=== PATIENT | female | born 1955 | race Hispanic/Latino ===

== ENCOUNTER 2019-02-07 06:08 | Observation (INO) | payer OTHER ==
[2019-02-07] MEDS ORDERED: NACL 0.9% 500 ML 500 ML ONE (06:15)
[2019-02-07] MEDS ORDERED: ECOTRIN PO ONE (06:26)
[2019-02-07 06:43] LABS: Basophils # (Auto) 0.1 K/mm3 (0.0-0.1); Basophils % (Auto) 0.7 % (0.0-1.8); Eosinophils # (Auto) 0.2 K/mm3 (0.0-0.4); Eosinophils % (Auto) 1.5 % (0.0-4.3); Hematocrit 38.4 % (30.3-42.9); Hemoglobin 12.9 gm/dl (10.1-14.3); Lymphocytes # (Auto) 2.7 K/mm3 (1.2-5.4); Lymphocytes % (Auto) 23.6 % (13.4-35.0); Mean Corpuscular HGB Conc 34 % (30-34); Mean Corpuscular Volume 91 fl (79-97); Monocytes # (Auto) 0.8 K/mm3 (0.0-0.8); Monocytes % (Auto) 6.8 % (0.0-7.3); Platelet Count 257 K/mm3 (140-440); Red Cell Distribution Width 14.7 % (13.2-15.2)
[2019-02-07 06:56] LABS: BUN/Creatinine Ratio 27; Blood Urea Nitrogen 19 mg/dL (7-17); Calcium 9.2 mg/dL (8.4-10.2); Hemolysis Index 69
[2019-02-07 07:00] LABS: INR 1.1 (0.87-1.13)
[2019-02-07 07:01] LABS: Partial Thromboplastin Time 27.9 Sec. (24.2-36.6)
[2019-02-07] MEDS: NACL 0.9% 500 ML 500 ML IV SCH ×2 (07:13→09:52)
[2019-02-07] MEDS ORDERED: PLAVIX PO SCH (08:30)
[2019-02-07] MEDS ORDERED: PLAVIX ONE ×2 (08:32→10:38)
[2019-02-07] MEDS ORDERED: HEPARIN/NS 5000 UNIT/500ML(CATH LAB) 1,000 ML IR ONE (09:20)
[2019-02-07] MEDS ORDERED: CALAN ONE (09:20)
[2019-02-07] MEDS ORDERED: XYLOCAINE 2% INFILTRATI ONE (09:20)
[2019-02-07] MEDS ORDERED: NITROGLYCERIN SYRINGE 3 ML ONE (09:21)
[2019-02-07] MEDS ORDERED: SUBLIMAZE ONE (09:35)
[2019-02-07] MEDS ORDERED: VERSED ONE (09:35)
[2019-02-07] MEDS: HEPARIN 10,000 UNITS/10 ML ONE ×3 (09:52→10:30)
[2019-02-07] MEDS ORDERED: ALUM-MAG HYDROX-SIMETH 200-200-20MG/5ML ONE (10:38)
--- NOTE | 2019-02-07 12:36 | Cardiac Catherization Report ---
REFERRING PHYSICIAN: Dr. Scottie Zamorano. INDICATION FOR PROCEDURE: The patient is a pleasant 63-year-old female having recurrent chest pain, abnormal nuclear stress test, on multiple antianginals, referred for left heart catheterization. She has known peripheral vascular disease as well. Risks, benefits, alternatives discussed at length prior to obtaining informed consent. PROCEDURE IN DETAIL: The patient was brought to the labelling machine operator in a postabsorptive state, was prepped and draped in sterile fashion. Cedric's test in right hand was normal. A 2 mL of 2% lidocaine used to anesthetize the right wrist. A standard 6-[place]rainian hydrophilic sheath used to cannulate the right radial artery via modified Seldinger technique. All exchanges performed to exchange a J-tip guidewire. A JL3.5 catheter used to engage the left main. No dampening or ventricularization. Cineangiography performed in multiple projections. JR4 catheter used to cross the aortic valve on fluoroscopic guidance. Left ventriculography in 30 HOOKS and 30 VENEZUELAN projections via hand injections, catheter flushed. Manual pullback performed with continuous pressure monitoring. Catheter used to engage the right coronary. No dampening or ventricularization. Cineangiography performed in all projections. DATA: Aortic pressure is 120/80. LV pressure is 120, LVEDP of 12 mmHg. She remained in normal sinus rhythm throughout the procedure. Left ventriculography reveals normal systolic performance. Estimated ejection fraction of 55-60%. No evidence of aortic stenosis. CORONARY ANATOMY: This is a codominant system. Left main is a short vessel, bifurcates into left anterior descending and left circumflex. Her overall vasculature is quite small for her size, likely due to long-term tobacco abuse. Left circumflex with an ulcerated 90% stenosis in the mid segment. This is the culprit lesion. There are extensive left to right collaterals identified. LAD is a moderate sized vessel, courses the anterior interventricular groove, wraps around the apex, scattered luminal irregularities in the small LAD, but no obstructive lesions identified in the LAD or diagonal vessels. The right coronary is very small and chronically occluded in the mid segment. Again, left to right collaterals were identified. Given unstable angina, abnormal stress test with lateral ischemia, chest pain, multiple antianginals, decided to proceed with PCI. Heparin given. EBU 3.0 guide was used to engage left main without difficulty, used a [place] wire to cross the lesion, used a 2.5 x 18 [place] drug-eluting stent deployed at 12 JANESSA for 30 seconds, excellent angiographic result. Intravascular ultrasound was performed, which reveals a well-opposed, well-expanded stent. No complications. Final angiogram reveals excellent result. I directly supervised the administration of moderate sedation from 10:10 a.m.-10:45 a.m. with fentanyl and Versed. CONCLUSIONS: 1. Severe 2-vessel disease. a. Ulcerated 90% mid left circumflex stenosis, which is the culprit lesion consistent with her symptoms and abnormal stress test. b. Successful IVUS guided PCI with placement of drug-eluting stent ([place] 2.5 x 18 mm) with excellent final angiographic and ultrasonographic results. c. Chronic total occlusion of a very small mid right coronary with left to right collaterals. Medical management. 3. Short left main and LAD without significant disease. 4. Preserved left ventricular systolic performance, estimated ejection fraction of 55-60%. 5. No evidence of aortic stenosis. Aspirin, Plavix, statin. I discussed smoking cessation at length for 5 minutes, including techniques; aggressive primary and secondary prevention measures; standard radial care. Results of procedure explained to the patient at length. All questions were addressed. Anticipate discharge tomorrow. JOB# [id number] SBM/NTS
[2019-02-08 06:13] LABS: Basophils % (Auto) 0.4 % (0.0-1.8); Eosinophils # (Auto) 0.1 K/mm3 (0.0-0.4); Eosinophils % (Auto) 1.2 % (0.0-4.3); Hemoglobin 13.1 gm/dl (10.1-14.3); Lymphocytes # (Auto) 1.8 K/mm3 (1.2-5.4); Lymphocytes % (Auto) 19.6 % (13.4-35.0); Mean Corpuscular HGB Conc 34 % (30-34); Mean Corpuscular Volume 90 fl (79-97); Monocytes # (Auto) 0.7 K/mm3 (0.0-0.8); Monocytes % (Auto) 7.5 % (0.0-7.3); Platelet Count 218 K/mm3 (140-440); Red Cell Distribution Width 14.7 % (13.2-15.2)
[2019-02-08 06:26] LABS: Creatine Kinase MB 22.8 ng/mL (0.0-4.0)
[2019-02-08 06:27] LABS: BUN/Creatinine Ratio 18; Blood Urea Nitrogen 9 mg/dL (7-17); Calcium 8.9 mg/dL (8.4-10.2); Hemolysis Index 0
[2019-02-08 07:17] LABS: Chol/HDL Ratio 3.76 %; HDL Cholesterol 30 mg/dL (40-59); LDL Cholesterol,Direct 73 mg/dL (50-130)
--- NOTE | 2019-02-08 08:10 | XRay Report ---
CHEST 1 VIEW 02/08/2019 7:57 AM INDICATION / CLINICAL INFORMATION: post pci. COMPARISON: None available. FINDINGS: SUPPORT DEVICES: None. HEART / MEDIASTINUM: Normal cardiac size and mediastinal contours with mild aortic atherosclerosis. LUNGS / PLEURA: No significant pulmonary or pleural abnormality. No pneumothorax. ADDITIONAL FINDINGS: No significant additional findings. IMPRESSION: No acute abnormality of the chest. Signer Name: Sergey Zhu MD Signed: 02/08/2019 8:06 AM Workstation Name: [id number]
[2019-02-08 08:38] VITALS: BP 103/47
[2019-02-08] MEDS ORDERED: BABY ASPIRIN PO SCH (10:00)
[2019-02-08] MEDS ORDERED: PLAVIX PO SCH (10:00)
--- NOTE | 2019-02-08 12:07 | Discharge Summary ---
Providers - Providers Date of Admission: 02/07/19 12:02 Attending physician: TIN ABEL 02/07/19 Consult to Cardiac Rehabilitation [CONS] Routine Reason For Exam: post pci Hospitalization Condition: Good Disposition: DC-01 TO HOME OR SELFCARE - Discharge Diagnoses (1) CAD (coronary artery disease) Status: Acute (2) Stented coronary artery Status: Acute Core Measure Documentation - Palliative Care Palliative Care/ Comfort Measures: Not Applicable - Core Measures Any of the following diagnoses?: none - VTE Discharge Requirements Deep Vein Thrombosis/Pulmonary Embolism Present on Admission: No Has pt received <5 days of overlap therapy or INR<2.0: No Contraindication No Overlap Therapy order at DC: Not Indicated - Heart Failure Discharge Requirements RUTHY/ARB for LVSD if EF <40%: Not Applicable - Stroke Discharge Requirements Statin for LDL = or >70 mg/dl on DC: Not Applicable Exam - Constitutional Vitals: Temp Pulse Resp BP Pulse Ox 98.3 F 73 18 103/47 98 02/08/19 07:28 02/08/19 10:00 02/08/19 07:28 02/08/19 07:28 02/08/19 07:28 General appearance: Present: no acute distress - EENT Eyes: Present: PERRL ENT: hearing intact - Neck Neck: Present: supple - Respiratory Respiratory effort: normal Respiratory: bilateral: CTA - Cardiovascular Rhythm: regular Heart Sounds: Present: S1 & S2 - Extremities Extremities: no ischemia, No edema Extremity abnormal: other (right radial site bruised. No hematoma or edema. ) Peripheral Pulses: within normal limits - Abdominal General gastrointestinal: Present: deferred Female genitourinary: Present: deferred Plan Activity: no restrictions Weight Bearing Status: Full Weight Bearing Diet: low fat, low cholesterol, low salt Wound: open to air Special Instructions: smoking cessation, other (Do not take metformin on 02/08 and 02/09. Resume metformin on 02/10) Follow up with: ANNY CEDILLO NP [Other] - 7 Days CAROLINA NGO MD [Staff Physician] - 7 Days Prescriptions: Clopidogrel [Plavix] 75 mg PO QDAY 30 Days tablet
== END 2019-02-08 13:31 | disposition home or self-care (01) ==
LOC: CATHLABREC 06:08 → 4A 12:02
PROVIDERS: ADMIT Internal Medicine; ATTEND Internal Medicine
DX: I25.10 Atherosclerotic heart disease of native coronary artery without angina pectoris (principal)
CPT/HCPCS: 36415; 71045; 80048; 80061; 82550; 82553; 82962; 84484; 85025; 85347; 85610; 85730; 92978; 93005; 93010; 93458; C1753; C1769; C1874; C1887; C1894; C9600; G0378; J1644; J2250; J3010; J7040; 92928; Q9967

== ENCOUNTER 2019-02-10 10:40 | Inpatient (IN) | payer OTHER ==
--- NOTE | 2019-02-10 11:24 | Emergency Department Report ---
ED Neuro Deficit HPI - General Chief Complaint: Neck Pain/Injury Stated Complaint: POSS STROKE Source: patient Mode of arrival: Wheelchair Limitations: No Limitations - History of Present Illness Initial Comments: [facility] Date of service: 02/10/2019 Impression: 63 year old female who presented to the ED because of 2 days of left side weakness and neglect as well as left visual field abnormality. Symptoms consistent with right posterior stroke. Not a tpa candidate due to: LSN more than 4.5 hours prior arrival Does not meet LVO screening criteria (no aphasia, neglect, gaze deviation, dense hemiparesis, or visual field deficits on exam), therefore advanced imaging is not indicated. Comments: Door Time: 10:40 [facility] contacted: 11:05 [facility] at bedside:11:10 NIHSS assessment start time (time the consultation begins): 11:20 Last known well time (LKW): 02/08/2019 Recommendations: Start antiplatelet if no obvious contraindication Stroke protocol admission/ orderset suggested with placement on stroke floor tele monitoring Bedside swallow evaluation HOB less than 30 degrees IV Fluid hydration with NS Euglycemia avoid hyperthermia, PRN acetaminophen dvt ppx Consider inpatient neurology consultation Discussed with ED MD Please call with questions --------- CC: Stroke alert History of Present Illness Patient is a63 year old female who presented to the hospital with 2 days of left side weakness and visual field defect. Patient woke up on Sunday and was unable to lift her left arm and was not speaking properly. She improved slightly but symptoms still persisted. Patient recently had a heart cath and had stent placed on 02/07. Diagnostic: CT Brain w/o contrast: multiple small hypodensities in the right parietal and left occipital lobe -- unclear if old or new. Exam: Mental Status: Awake, alert, oriented Naming: Intact Repetition: Intact Speech: fluent Cranial Nerves: Pupils: Equal round and reactive to light Extraocular movements: Intact in all cardinal gaze Ptosis: Absent Visual sow: left lower visual field defect. Facial sensation: Intact to pin and light touch Facial movements: Intact and symmetric Motor Exam: left leg weakness Sensory Exam: Light touch: Intact Pinprick: Intact Coordination: Finger to nose: Intact Heel to carreon: Intact NIHSS score: 2 Medical Decision Making: - Extensive number of diagnosis or management options are considered above. - Extensive amount of complex data reviewed. - High risk of complication and/or morbidity or mortality are associated with differential diagnostic considerations above. - There may be Uncertain outcome and increased probability of prolonged functional impairment or high probability of severe prolonged functional impairment associated with some of these differential diagnosis. Medical Data Reviewed: 1.Data reviewed include clinical labs, radiology,Medical Tests; 2.Tests results discussed w/performing or interpreting physician; 3.Obtaining/reviewing old medical records; 4.Obtaining case history from another source; 5.Independent review of image, tracing or specimen. Patient was informed the Neurology Consult would happen via TeleHealth consult by way of interactive audio and video telecommunications and consented to receiving care in this manner. - Related Data Home Medications: Home Medications Medication Instructions Recorded Confirmed Last Taken Albuterol Sulfate [Proventil Hfa] 6.7 gm IH PRN PRN 02/07/19 02/07/19 Unknown AtorvaSTATin [Lipitor] 40 mg PO QHS 02/07/19 02/07/19 02/06/19 Clopidogrel [Plavix] 75 mg PO DAILY 02/07/19 02/07/19 02/06/19 Dulaglutide [Trulicity] 0.75 mg SQ QWEEK 02/07/19 02/07/19 02/04/19 Escitalopram [Lexapro] 10 mg PO DAILY 02/07/19 02/07/19 02/07/19 Lisinopril [Zestril TAB] 5 mg PO DAILY 02/07/19 02/07/19 02/06/19 glipiZIDE [Glucotrol] 10 mg PO QID 02/07/19 02/07/19 02/06/19 metFORMIN [Glucophage] 850 mg PO BID 02/07/19 02/07/19 02/06/19 Previous Rx's Medication Instructions Recorded Last Taken Type Aspirin [Aspirin BABY CHEW TAB] 162 mg PO QDAY tab.chew 02/08/19 Unknown Rx Clopidogrel [Plavix] 75 mg PO QDAY 30 Days tablet 02/08/19 Unknown Rx Allergies/Adverse Reactions: Allergies Allergy/AdvReac Type Severity Reaction Status Date / Time No Known Allergies Allergy Unverified 02/07/19 06:08 ED Review of Systems ROS: Stated complaint: POSS STROKE Other details as noted in HPI ED Past Medical Hx - Past Medical History Hx Hypertension: Yes Hx Heart Attack/AMI: No Hx Diabetes: Yes Hx Arthritis: Yes Hx Asthma: Yes (inhaler prn) Hx HIV: No - Surgical History Hx Coronary Stent: Yes - Social History Smoking Status: Current Every Day Smoker Substance Use Type: None - Medications Home Medications: Home Medications Medication Instructions Recorded Confirmed Last Taken Type Albuterol Sulfate [Proventil Hfa] 6.7 gm IH PRN PRN 02/07/19 02/07/19 Unknown History AtorvaSTATin [Lipitor] 40 mg PO QHS 02/07/19 02/07/19 02/06/19 History Clopidogrel [Plavix] 75 mg PO DAILY 02/07/19 02/07/19 02/06/19 History Dulaglutide [Trulicity] 0.75 mg SQ QWEEK 02/07/19 02/07/19 02/04/19 History Escitalopram [Lexapro] 10 mg PO DAILY 02/07/19 02/07/19 02/07/19 History Lisinopril [Zestril TAB] 5 mg PO DAILY 02/07/19 02/07/19 02/06/19 History glipiZIDE [Glucotrol] 10 mg PO QID 02/07/19 02/07/19 02/06/19 History metFORMIN [Glucophage] 850 mg PO BID 02/07/19 02/07/19 02/06/19 History Aspirin [Aspirin BABY CHEW TAB] 162 mg PO QDAY tab.chew 02/08/19 Unknown Rx Clopidogrel [Plavix] 75 mg PO QDAY 30 Days tablet 02/08/19 Unknown Rx ED Neuro Physical Exam - General Limitations: No Limitations Suspected Stroke: Yes - NIHSS Assessment Interval: Baseline 1a. Level of Consciousness: alert/keenly responsive 1b. LOC Questions: answers both correctly 1c. LOC Commands: performs tasks correctly 2. Best Gaze: normal 3. Visual: partial hemianopia 4. Facial Palsy: normal symmetrical movement 5b. Motor Arm Right: no drift 5a. Motor Arm Left: no drift 6a. Motor Leg Left: drift 6b. Motor Leg Right: no drift 7. Limb Ataxia: absent 8. Sensory: normal 9. Best Language: no aphasia 10. Dysarthria: normal 11. Extinction/Inattention: no abnormality Total Score: 2 Stroke Severity: Minor Stroke ED Course Vital Signs 02/10/19 10:52 Temperature 98.5 F Pulse Rate 83 Respiratory 20 Rate Blood Pressure 112/39 O2 Sat by Pulse 98 Oximetry - Lab Data Lab Results 02/10/19 Range/Units 11:04 POC Glucose 377 H (70-105) Critical care attestation.: If time is entered above; I have spent that time in minutes in the direct care of this critically ill patient, excluding procedure time. ED Disposition Clinical Impression: Stroke Qualifiers: CVA mechanism: unspecified Qualified Code(s): I63.9 - Cerebral infarction, unspecified Disposition: DC-09 OP ADMIT IP TO THIS HOSP Is pt being admited?: Yes Does the pt Need Aspirin: Yes Condition: Stable
--- NOTE | 2019-02-10 11:39 | Emergency Department Report ---
ED General Adult HPI - General Chief complaint: Neck Pain/Injury Stated complaint: POSS STROKE Time Seen by Provider: 02/10/19 11:20 Source: patient Mode of arrival: Wheelchair Limitations: No Limitations - History of Present Illness -: Gradual - Related Data Home Medications Medication Instructions Recorded Confirmed Last Taken Albuterol Sulfate [Proventil Hfa] 6.7 gm IH PRN PRN 02/07/19 02/07/19 Unknown AtorvaSTATin [Lipitor] 40 mg PO QHS 02/07/19 02/07/19 02/06/19 Clopidogrel [Plavix] 75 mg PO DAILY 02/07/19 02/07/19 02/06/19 Dulaglutide [Trulicity] 0.75 mg SQ QWEEK 02/07/19 02/07/19 02/04/19 Escitalopram [Lexapro] 10 mg PO DAILY 02/07/19 02/07/19 02/07/19 Lisinopril [Zestril TAB] 5 mg PO DAILY 02/07/19 02/07/19 02/06/19 glipiZIDE [Glucotrol] 10 mg PO QID 02/07/19 02/07/19 02/06/19 metFORMIN [Glucophage] 850 mg PO BID 02/07/19 02/07/19 02/06/19 Previous Rx's Medication Instructions Recorded Last Taken Type Aspirin [Aspirin BABY CHEW TAB] 162 mg PO QDAY tab.chew 02/08/19 Unknown Rx Clopidogrel [Plavix] 75 mg PO QDAY 30 Days tablet 02/08/19 Unknown Rx Allergies Allergy/AdvReac Type Severity Reaction Status Date / Time No Known Allergies Allergy Unverified 02/07/19 06:08 ED Review of Systems ROS: Stated complaint: POSS STROKE Other details as noted in HPI ED Past Medical Hx - Past Medical History Hx Hypertension: Yes Hx Heart Attack/AMI: No Hx Diabetes: Yes Hx Arthritis: Yes Hx Asthma: Yes (inhaler prn) Hx HIV: No - Surgical History Hx Coronary Stent: Yes - Social History Smoking Status: Current Every Day Smoker Substance Use Type: None - Medications Home Medications: Home Medications Medication Instructions Recorded Confirmed Last Taken Type Albuterol Sulfate [Proventil Hfa] 6.7 gm IH PRN PRN 02/07/19 02/07/19 Unknown History AtorvaSTATin [Lipitor] 40 mg PO QHS 02/07/19 02/07/1902/06/19 History Clopidogrel [Plavix] 75 mg PO DAILY 02/07/19 02/07/19 02/06/19 History Dulaglutide [Trulicity] 0.75 mg SQ QWEEK 02/07/19 02/07/19 02/04/19 History Escitalopram [Lexapro] 10 mg PO DAILY 02/07/19 02/07/19 02/07/19 History Lisinopril [Zestril TAB] 5 mg PO DAILY 02/07/19 02/07/19 02/06/19 History glipiZIDE [Glucotrol] 10 mg PO QID 02/07/19 02/07/19 02/06/19 History metFORMIN [Glucophage] 850 mg PO BID 02/07/19 02/07/19 02/06/19 History Aspirin [Aspirin BABY CHEW TAB] 162 mg PO QDAY tab.chew 02/08/19 Unknown Rx Clopidogrel [Plavix] 75 mg PO QDAY 30 Days tablet 02/08/19 Unknown Rx ED Physical Exam - General Limitations: No Limitations General appearance: lethargic - Head Head exam: Present: atraumatic, normocephalic - Eye Eye exam: Present: normal appearance, PERRL, EOMI - ENT ENT exam: Present: normal exam - Neck Neck exam: Present: normal inspection - Respiratory Respiratory exam: Present: normal lung sounds bilaterally - Cardiovascular Cardiovascular Exam: Present: regular rate - GI/Abdominal GI/Abdominal exam: Present: soft, normal bowel sounds ED Course Vital Signs 02/10/19 02/10/19 10:52 11:30 Temperature 98.5 F Pulse Rate 83 78 Respiratory 20 21 Rate Blood Pressure 112/39 123/36 O2 Sat by Pulse 98 96 Oximetry ED Medical Decision Making - EKG Data -: EKG Interpreted by Me EKG shows normal: sinus rhythm Rate: normal - EKG Data When compared to previous EKG there are: no significant change 02/10/19 12:08 sinus rhythm, 74 - Radiology Data Radiology results: report reviewed - Medical Decision Making patient with stroke symptoms nih 2, but symptoms are two days old, therefore patient is out of the TPa window. Critical care attestation.: If time is entered above; I have spent that time in minutes in the direct care of this critically ill patient, excluding procedure time. ED Disposition Clinical Impression: Stroke Disposition: DC-09 OP ADMIT IP TO THIS HOSP Condition: Stable
--- NOTE | 2019-02-10 11:53 | Cat Scan Report ---
CT of the head without contrast INDICATION: neuro deficits <6hrs or sx present upon awakening. TECHNIQUE: Routine CT head without contrast. All CT scans at this location are performed using CT dos e reduction for ALARA by means of automated exposure control. COMPARISON: None. FINDINGS: BRAIN / INTRACRANIAL CONTENTS: No acute hemorrhage, mass effect, midline shift, or hydrocephalus. No appreciable acute large territorial or lacunar infarct. There is a small chronic-appearing cortical i nfarct in the left occipital lobe in the left ASSISTANT PROFESSOR OF HISTORY territory as well as a small chronic appearing lacu morro infarction right caudate head. There is a commensurate mild ventricular and cisternal prominence. ORBITS: No significant abnormality of visualized orbits. SINUSES / MASTOIDS: No significant abnormality of visualized sinuses and mastoid air cells. ADDITIONAL FINDINGS: None. IMPRESSION: 1. No definite acute findings. 2. Small chronic-appearing cortical infarct in the left occipital lobe and small chronic appearing la cune in the right caudate head. Signer Name: Mat Estes MD Signed: 02/10/2019 11:49 AM Workstation Name: [id number]
[2019-02-10 12:18] LABS: Basophils # (Auto) 0.1 K/mm3 (0.0-0.1); Basophils % (Auto) 0.8 % (0.0-1.8); Eosinophils # (Auto) 0.1 K/mm3 (0.0-0.4); Eosinophils % (Auto) 1.7 % (0.0-4.3); Hematocrit 36.1 % (30.3-42.9); Hemoglobin 12.1 gm/dl (10.1-14.3); Lymphocytes # (Auto) 2.3 K/mm3 (1.2-5.4); Lymphocytes % (Auto) 27.1 % (13.4-35.0); Mean Corpuscular HGB Conc 34 % (30-34); Mean Corpuscular Volume 91 fl (79-97); Monocytes # (Auto) 0.6 K/mm3 (0.0-0.8); Monocytes % (Auto) 7.6 % (0.0-7.3); Red Blood Count 3.95 M/mm3 (3.65-5.03); Red Cell Distribution Width 14.4 % (13.2-15.2)
[2019-02-10 12:27] LABS: INR 1.12 (0.87-1.13)
[2019-02-10 12:42] LABS: BUN/Creatinine Ratio 20; Blood Urea Nitrogen 16 mg/dL (7-17); Hemolysis Index 18
[2019-02-10 13:24] LABS: Platelet Count 211 K/mm3 (140-440)
--- NOTE | 2019-02-10 17:24 | Cat Scan Report ---
CTA neck with and without contrast CLINICAL HISTORY: Cerebrovascular accident. Technique: Multiple contiguous postcontrast axial CT images of the neck were obtained at 0.63 mm inte rvals. 3 plane MIP reconstructions were produced. Precontrast localizing images were also performed. All CT scans at this location are performed using the CT dose reduction for ALARA by means of automat ed exposure control. FINDINGS: No previous exams available for comparison. There is calcified atherosclerotic plaque invol ving the left carotid bifurcation with approximately 70% stenosis by NASCET criteria. Scattered plaqu e is also seen along the extent of the left common carotid artery with mild segmental narrowing. The mild narrowing also appears to include the origin of the left common carotid artery. There is also calcified plaque involving the right carotid bifurcation with mild, 30-40% stenosis at. There is marked stenosis involving origin of the right external carotid artery at. Is mild plaque in volving the right common carotid artery without significant narrowing. There appears be mild narrowing involving the origin of the left vertebral artery. Otherwise, this ve ssels are unremarkable. The proximal right vertebral artery is obscured by the dense contrast within the overlying venous structures at. However, there also appears to be a calcified plaque at the origi n with mild narrowing at. The more distal right vertebral artery is unremarkable. There is notable ca lcification involving the aortic arch. There is notable irregular plaque extending into the proximal left subclavian artery with mild ectasia and stenosis. IMPRESSION: There is calcified plaque involving left carotid bifurcation with approximately 70% stenosis by NASCE T criteria. 2. This also calcified plaque involving right carotid bifurcation with 30-40% stenosis at. There is m arked narrowing of the origin of the right external carotid artery. 3. There is mild narrowing of the origins of the vertebral arteries. Signer Name: Rufino Simmons MD Signed: 02/10/2019 5:19 PM Workstation Name: [id number]
--- NOTE | 2019-02-10 17:30 | Cat Scan Report ---
CTA head with and without IV contrast. CLINICAL HISTORY: Cerebrovascular accident. Technique: Multiple contiguous postcontrast CT images of the head were obtained at 0.63 mm intervals. 3 plane MIP reconstructions were obtained. Precontrast localizing images were also performed. CT scan s at this location are performed using the CT dose reduction for [employer] by means of automated exposure control. FINDINGS: There is atherosclerotic calcification involving the distal internal carotid arteries with mild to moderate segmental narrowing at, most notably involving the anterior genu used. There is no s ignificant stenosis of the vertebrobasilar system. The motion degrades image quality at. Furthermore, there appears to be diffuse irregularity of the in tracranial vessels which may reflect atherosclerotic disease. There is also a focus of calcification involving the M1 segment of the right MCA with associated at. However, contrast opacification is seen distal to this region. Otherwise, the proximal cerebral branches appear unremarkable. There is no definitive CTA evidence of intracranial aneurysm. The dural venous sinuses opacify with c ontrast. IMPRESSION: There is atherosclerotic calcification involving the distal internal carotid arteries with mild to mo derate segmental narrowing as described. Signer Name: Rufino Simmons MD Signed: 02/10/2019 5:26 PM Workstation Name: [id number]
[2019-02-10] MEDS ORDERED: TYLENOL PO PRN (20:03)
[2019-02-10] MEDS ORDERED: IBUPROFEN PO PRN (20:03)
[2019-02-10] MEDS ORDERED: SODIUM CHLORIDE FLUSH SYRINGE 10 ML IV PRN ×2 (20:03→20:09)
[2019-02-10] MEDS ORDERED: ZOFRAN IV PRN (20:03)
[2019-02-10] MEDS ORDERED: PROAIR IH PRN (20:06)
[2019-02-10] MEDS ORDERED: PROVENTIL IH PRN (20:14)
[2019-02-10] MEDS ORDERED: NACL 0.9% 1000 ML 1,000 ML IV SCH (21:00)
[2019-02-10] MEDS: PEPCID PO SCH (23:19)
[2019-02-10] MEDS: SODIUM CHLORIDE FLUSH SYRINGE 10 ML IV SCH (23:19)
[2019-02-10] MEDS: BABY ASPIRIN PO SCH (23:19)
[2019-02-10] MEDS: LEXAPRO PO SCH (23:48)
[2019-02-10] MEDS: GLUCOTROL PO SCH (23:48)
[2019-02-10] MEDS: GLUCOPHAGE PO SCH (23:49)
[2019-02-10] MEDS: ZESTRIL PO SCH (23:49)
[2019-02-11 06:14] LABS: Basophils # (Auto) 0.1 K/mm3 (0.0-0.1); Basophils % (Auto) 0.7 % (0.0-1.8); Eosinophils # (Auto) 0.2 K/mm3 (0.0-0.4); Eosinophils % (Auto) 1.9 % (0.0-4.3); Hematocrit 34.8 % (30.3-42.9); Hemoglobin 11.8 gm/dl (10.1-14.3); Lymphocytes # (Auto) 2.2 K/mm3 (1.2-5.4); Lymphocytes % (Auto) 26.8 % (13.4-35.0); Mean Corpuscular HGB Conc 34 % (30-34); Mean Corpuscular Volume 92 fl (79-97); Monocytes # (Auto) 0.7 K/mm3 (0.0-0.8); Monocytes % (Auto) 8.8 % (0.0-7.3); Platelet Count 194 K/mm3 (140-440); Red Blood Count 3.77 M/mm3 (3.65-5.03); Red Cell Distribution Width 14.6 % (13.2-15.2)
[2019-02-11 06:23] LABS: Alanine Aminotransferase 16 units/L (7-56); Albumin 3.1 g/dL (3.9-5); BUN/Creatinine Ratio 22; Blood Urea Nitrogen 13 mg/dL (7-17); Calcium 8.5 mg/dL (8.4-10.2); Chol/HDL Ratio 3.88 %; HDL Cholesterol 26 mg/dL (40-59); Hemolysis Index 1; LDL Cholesterol,Direct 61 mg/dL (50-130)
[2019-02-11] MEDS: GLUCOTROL PO SCH ×2 (08:00→17:57)
[2019-02-11] MEDS: GLUCOPHAGE PO SCH ×2 (08:06→17:58)
--- NOTE | 2019-02-11 08:37 | History and Physical Report ---
CHIEF COMPLAINT: COmes in for slurred speech and L sided weakness since last 5 to 6 hours.Code stroke was called. HISTORY OF PRESENT ILLNESS: COmes in for slurred speech and L sided weakness since last 5 to 6 hours.Code stroke was called.Her L sided weakness nearly resolved PAST MEDICAL HISTORY: Significant for hepatitis B, hypertension, type 2 diabetes and coronary artery disease, and hyperlipidemia. PAST SURGICAL HISTORY: Coronary stent. SOCIAL HISTORY: Smokes every day, pack a day. FAMILY HISTORY: Hypertension. CURRENT MEDICATIONS: On the chart. PHYSICAL EXAMINATION: GENERAL: Young elderly female, cooperative during examination. VITAL SIGNS: Initial blood pressure was very high, 190/70. HR 88 T 98.6 HEENT: Unremarkable. The pupils are equal and reactive. NECK: Supple, no lymphadenopathy, no thyromegaly. LUNGS: Clear to auscultation and percussion. Good air entry. CARDIOVASCULAR: S1, S2 heard. No gallop, no murmur, no rub. Apical impulse in left fifth intercostal space in midclavicular line. ABDOMEN: Soft and benign. No hepatosplenomegaly. No guarding, no rigidity. Hernial orifices are normal. EXTREMITIES: Good power, 5/5 power in all 4 extremities. CENTRAL NERVOUS SYSTEM: Sensory system normal. No cerebellar signs. ASSESSMENT AND PLAN: 1. Acute CVA versus Transient ischemic attack The patient had slurred speech which has resolved. CVA workup including MRI/MRA brain, carotid duplex scan and echocardiogram. 2. Asthma. Continue albuterol inhaler. 3. Hyperlipidemia. Continue Lipitor 40 mg at bedtime. 4. Type 2 diabetes. Continue Trulicity and Glucophage and glipizide. 5. Parkinson's disease. Continue Sinemet. 6. Deep venous thrombosis prophylaxis, Lovenox and GI prophylaxis JOB# [id number] VSM/NTS GUILLERMOD
[2019-02-11] MEDS ORDERED: D50W (25GM) Syringe IV PRN (09:30)
--- NOTE | 2019-02-11 10:07 | Event Note ---
Date: 02/10/19 Acute CVA versus TIA See in reports
--- NOTE | 2019-02-11 11:20 | Vascular Lab Report ---
"DUPLEX DOPPLER ULTRASOUND CAROTID, BILATERAL INDICATION: stroke. FINDINGS: RIGHT CAROTID: Small amount of atherosclerotic plaque. Right ICA peak systolic velocity: 102 cm/sec. Right Vertebral Artery: Antegrade flow. LEFT CAROTID: Moderate calcified atherosclerotic plaque. Left ICA peak systolic velocity: 132 cm/sec. Left Vertebral Artery: Antegrade flow. IMPRESSION: 1. Right Internal Carotid Artery: Less than 50% diameter stenosis. 2. Left Internal Carotid Artery: 50-69% diameter stenosis. Velocity criteria are extrapolated from diameter data as defined by the Society of Radiologists in Ul trasound Consensus Conference, Radiology 2003; 229;340-346. Degree of Stenosis (%) || ICA PSV (cm/sec) || Plaque estimate (%) || ICA/CCA PSV Ratio Normal <125 None <2.0 <50 <125 <50 <2.0 50-69 125-230 50 2.0-4.0 70 but less than 100 >230 50 >4.0 Near occlusion High, low, or none visible variable Total occlusion None visible; no lumen N/A Signer Name: Scott Starks MD Signed: 02/11/2019 11:16 AM Workstation Name: [id number]"
[2019-02-11] MEDS: HumaLOG SUB-Q SCH ×3 (11:30→22:43)
--- NOTE | 2019-02-11 11:52 | Consultation ---
History of Present Illness Consult date: 02/11/19 Requesting physician: CHANELL LAN Consult reason: elevated troponin History of present illness: The patient is followed by Dr. Zamorano in our office. On 02/07/19, following an abnormal stress test, she underwent coronary intervention. Coronary angiography revealed a 90% stenosis of the circumflex coronary artery for which she received a drug eluting stent. There is also a SALES SUPPORT ADVISOR of a small mid RCA which is being managed medically. LV systolic function was normal on LVG. Three days ago, she developed left upper extremity weakness with left-sided neglect and left visual field symptoms. CT scan did not reveal any acute findings other than occipital stroke. However, CTA revealed 70% stenosis at the bifurcation of the left carotid artery. MRI is currently pending. Although troponin level is mildly elevated, she has no cardiac symptoms. Past History Past Medical History: CAD, diabetes, hypertension, hyperlipidemia Past Surgical History: PTCA, Other (Vscular surgery) Social history: smoking Family history: denies: CAD Medications and Allergies Allergies Allergy/AdvReac Type Severity Reaction Status Date / Time No Known Allergies Allergy Unverified 02/07/19 06:08 Home Medications Medication Instructions Recorded Confirmed Last Taken Type Albuterol Sulfate [Proventil Hfa] 6.7 gm IH PRN PRN 02/07/19 02/10/19 02/10/19 History AtorvaSTATin [Lipitor] 40 mg PO QHS 02/07/19 02/10/19 02/09/19 History Escitalopram [Lexapro] 10 mg PO DAILY 02/07/19 02/10/19 02/09/19 History Lisinopril [Zestril TAB] 5 mg PO DAILY 02/07/19 02/10/19 02/09/19 History glipiZIDE [Glucotrol] 10 mg PO QID 02/07/19 02/10/19 02/09/19 History metFORMIN [Glucophage] 850 mg PO BID 02/07/19 02/10/19 02/09/19 History Aspirin [Aspirin BABY CHEW TAB] 81 mg PO QDAY 02/10/19 02/10/19 02/09/19 History Active Meds: Active Medications Acetaminophen (Tylenol) 650 mg PO Q4H PRN PRN Reason: Pain MILD(1-3)/Fever >100.5/MYERS Albuterol (Proventil) 2.5 mg IH Q4HRT PRN PRN Reason: Shortness Of Breath Aspirin (Baby Aspirin) 81 mg PO QDAY [facility] Last Admin: 02/10/19 23:19 Dose: 81 mg Documented by: Atorvastatin Calcium (Lipitor) 40 mg PO QHS [facility] Last Admin: 02/10/19 23:19 Dose: 40 mg Documented by: Dextrose (D50w (25gm) Syringe) 50 ml IV PRN PRN PRN Reason: Hypoglycemia Escitalopram Oxalate (Lexapro) 10 mg PO DAILY [facility] Last Admin: 02/10/19 23:48 Dose: 10 mg Documented by: Famotidine (Pepcid) 20 mg PO BID [facility] Last Admin: 02/10/19 23:19 Dose: 20 mg Documented by: Glipizide (Glucotrol) 10 mg PO BIDDIAB [facility] Last Admin: 02/10/19 23:48 Dose: 10 mg Documented by: Sodium Chloride (Nacl 0.9% 1000 Ml) 1,000 mls @ 75 mls/hr IV DIRECT [facility] Last Admin: 02/10/19 23:19 Dose: 75 mls/hr Documented by: Ibuprofen (Ibuprofen) 600 mg PO Q6H PRN PRN Reason: Pain, Mild (1-3) Insulin Human Lispro (Humalog) 0 unit SUB-Q ACHS [facility]; Protocol Lisinopril (Zestril) 5 mg PO DAILY [facility] Last Admin: 02/10/19 23:49 Dose: Not Given Documented by: Metformin HCl (Glucophage) 850 mg PO BIDDIAB [facility] Last Admin: 02/10/19 23:49 Dose: Not Given Documented by: Ondansetron HCl (Zofran) 4 mg IV Q8H PRN PRN Reason: Nausea And Vomiting Sodium Chloride (Sodium Chloride Flush Syringe 10 Ml) 10 ml IV BID [facility] Last Admin: 02/10/19 23:19 Dose: 10 ml Documented by: Sodium Chloride (Sodium Chloride Flush Syringe 10 Ml) 10 ml IV PRN PRN PRN Reason: LINE FLUSH Review of Systems Constitutional: no fever, no chills Ears, nose, mouth and throat: no ear pain, no ear discharge, no sore throat Cardiovascular: no chest pain, no palpitations, no lightheadedness, no shortness of breath Respiratory: no cough, no hemoptysis Gastrointestinal: no abdominal pain, no nausea, no vomiting, no diarrhea, no constipation Genitourinary Female: no dysuria, no urinary frequency Rectal: no pain, no bleeding Musculoskeletal: no neck stiffness, no neck pain Integumentary: no rash, no pruritis Neurological: weakness, change in speech, no numbness, no headaches Endocrine: no cold intolerance, no heat intolerance Hematologic/Lymphatic: no easy bruising, no easy bleeding Allergic/Immunologic: no urticaria, no wheezing Physical Examination Vital Signs Last Vital Signs Temp 97.6 F 02/11/19 11:43 Pulse 69 02/11/19 11:43 Resp 16 02/11/19 11:43 BP 136/50 02/11/19 11:43 Pulse Ox 97 02/11/19 11:43 General appearance: no acute distress HEENT: Positive: EOMI, Normocephaly, Mucus Membranes Moist Neck: Positive: neck supple, trachea midline Cardiac: Positive: Reg Rate and Rhythm, S1/S2 Lungs: Positive: clear to auscultation Neuro: Positive: Grossly Intact Abdomen: Positive: Soft, Active Bowel Sounds. Negative: Tender Skin: Positive: Clear. Negative: Rash Musculoskeletal: Normal Range of Motion Extremities: Present: normal. Absent: edema Results 02/11/19 05:14 02/11/19 05:14 Cardiac Enzymes 02/11/19 Range/Units 05:14 AST 17 (5-40) units/L Coagulation 02/10/19 Range/Units 11:31 PT 14.1 (12.2-14.9) Sec. INR 1.12 (0.87-1.13) APTT 21.0 L (24.2-36.6) Sec. Lipids 02/11/19 Range/Units 05:14 Triglycerides 134 (2-149) mg/dL Cholesterol 101 (50-199) mg/dL HDL Cholesterol 26 L (40-59) mg/dL Cholesterol/HDL Ratio 3.88 % CBC 02/10/19 02/11/19 Range/Units 11:31 05:14 WBC 8.4 8.2 (4.5-11.0) K/mm3 RBC 3.95 3.77 (3.65-5.03) M/mm3 Hgb 12.1 11.8 (10.1-14.3) gm/dl Hct 36.1 34.8 (30.3-42.9) % Plt Count 211 194 (140-440) K/mm3 Lymph # 2.3 2.2 (1.2-5.4) K/mm3 [place] # 0.6 0.7 (0.0-0.8) K/mm3 Eos # 0.1 0.2 (0.0-0.4) K/mm3 Baso # 0.1 0.1 (0.0-0.1) K/mm3 Comprehensive Metabolic Panel 02/10/19 02/11/19 Range/Units 11:31 05:14 Sodium 135 L 137 (137-145) mmol/L Potassium 4.3 4.0 (3.6-5.0) mmol/L Chloride 99.6 102.4 (98-107) mmol/L Carbon Dioxide 22 23 (22-30) mmol/L BUN 16 13 (7-17) mg/dL Creatinine 0.8 D 0.6 L (0.7-1.2) mg/dL Glucose 379 H 225 H (65-100) mg/dL Calcium 9.0 8.5 (8.4-10.2) mg/dL AST 17 (5-40) units/L ALT 16 (7-56) units/L Alkaline Phosphatase 66 (35-129) units/L Total Protein 6.6 (6.3-8.2) g/dL Albumin 3.1 L (3.9-5) g/dL EKG interpretations - Telemetry EKG Rhythm: Sinus Rhythm Assessment and Plan Cardiac status appears stable. Elevated Tn is likely residual from recent PCI. Obtain Echo. - Patient Problems (1) Acute CVA (cerebrovascular accident) Current Visit: Yes Status: Acute (2) Stenosis of left internal carotid artery Current Visit: Yes Status: Acute (3) Stented coronary artery Current Visit: Yes Status: Chronic (4) CAD (coronary artery disease) Current Visit: Yes Status: Chronic Qualifiers: Coronary Disease-Associated Artery/Lesion type: [place] artery (5) Elevated troponin Current Visit: Yes Status: Acute (6) Hypertension Current Visit: Yes Status: Chronic Qualifiers: Hypertension type: essential hypertension Qualified Code(s): I10 - Es sential (primary) hypertension (7) Diabetes mellitus Current Visit: Yes Status: Chronic Qualifiers: Diabetes mellitus type: type 2
[2019-02-11] MEDS: PEPCID PO SCH ×2 (12:43→22:43)
[2019-02-11] MEDS: ZESTRIL PO SCH (12:43)
[2019-02-11] MEDS: BABY ASPIRIN PO SCH (12:44)
[2019-02-11] MEDS: LEXAPRO PO SCH (12:44)
[2019-02-11] MEDS: SODIUM CHLORIDE FLUSH SYRINGE 10 ML IV SCH ×2 (12:44→22:43)
--- NOTE | 2019-02-11 14:39 | Progress Note ---
Assessment and Plan Assessment and plan: Patient is a 63 yo [place] woman with a history of type 2 DM, hypertension, dyslipidemia, depression and CAD s/p recent PCI with JOSE On 02/07/19, following an abnormal stress test, she underwent coronary intervention. Coronary angiography revealed a 90% stenosis of the circumflex coronary artery for which she received a drug eluting stent. There is also a ICE GRINDER of a small mid RCA which is being managed medically. LV systolic function was normal on LVG. Three days ago, she developed left upper extremity weakness with left-sided neglect and left visual field symptoms and slurred speech. * Carotid Ultrasound bilateral doppler Impression: Right ICA less than 50% diameter stenosis, Left ICA 50-69% diameter stenosis * CTA neck IMPRESSION: There is calcified plaque involving left carotid bifurcation with approximately 70% stenosis by NASCET criteria. 2. This also calcified plaque involving right carotid bifurcation with 30-40% stenosis at. There is marked narrowing of the origin of the right external carotid artery. 3. There is mild narrowing of the origins of the vertebral arteries. * CT head without contrast IMPRESSION: 1. No definite acute findings. 2. Small chronic-appearing cortical infarct in the left occipital lobe and small chronic appearing lacune in the right caudate head. * CTA head IMPRESSION: There is atherosclerotic calcification involving the distal internal carotid arteries with mild to moderate segmental narrowing as described. * pCXR IMPRESSION: No acute abnormality of the chest. 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 Follow-up on current diagnosis of slurred speech, resolved. No overnight events reported to me. Patient denies any chest pain, shortness breath, nausea/vomiting or severe headaches. Imaging, nursing note, chart, labs and old chart reviewed. Discussed with patient. Hospitalist Physical - Physical exam Narrative exam: Gen: WDWN, NAD, Awake, Alert, Orientated HEENT: NCAT, EOMI, PERRL, OP Clear Neck: supple, no adenopathy, no thyromegaly, no JVD CVS/Heart: RRR, normal S1S2, pulses present bilaterally Chest/Lungs: CTA B, Symmetrical chest expansion, good air entry bilaterally GI/Abdomen: soft, NTND, good bowel sounds, no guarding or rebound /Bladder: no suprapubic tenderness, no CVA or paraspinal tenderness Extermity/Skin: no c/c/e, no obvious rash MSK: FROM x 4 Neuro: CN 2-12 grossly intact, no new focal deficits Psych: calm - Constitutional Vitals: Temp Pulse Resp BP Pulse Ox 97.6 F 69 16 136/50 97 02/11/19 11:43 02/11/19 14:00 02/11/19 11:43 02/11/19 11:43 02/11/19 11:43 General appearance: Present: no acute distress Results - Labs CBC & Chem 7: 02/11/19 05:14 02/11/19 05:14 Labs: Laboratory Last Values WBC 8.2 K/mm3 (4.5-11.0) 02/11/19 05:14 RBC 3.77 M/mm3 (3.65-5.03) 02/11/19 05:14 Hgb 11.8 gm/dl (10.1-14.3) 02/11/19 05:14 Hct 34.8 % (30.3-42.9) 02/11/19 05:14 MCV 92 fl (79-97) 02/11/19 05:14 MCH 31 pg (28-32) 02/11/19 05:14 MCHC 34 % (30-34) 02/11/19 05:14 RDW 14.6 % (13.2-15.2) 02/11/19 05:14 Plt Count 194 K/mm3 (140-440) 02/11/19 05:14 Lymph % (Auto) 26.8 % (13.4-35.0) 02/11/19 05:14 [place] % (Auto) 8.8 % (0.0-7.3) H 02/11/19 05:14 Eos % (Auto) 1.9 % (0.0-4.3) 02/11/19 05:14 Baso % (Auto) 0.7 % (0.0-1.8) 02/11/19 05:14 Lymph # 2.2 K/mm3 (1.2-5.4) 02/11/19 05:14 [place] # 0.7 K/mm3 (0.0-0.8) 02/11/19 05:14 Eos # 0.2 K/mm3 (0.0-0.4) 02/11/19 05:14 Baso # 0.1 K/mm3 (0.0-0.1) 02/11/19 05:14 Seg Neutrophils % 61.8 % (40.0-70.0) 02/11/19 05:14 Seg Neutrophils # 5.1 K/mm3 (1.8-7.7) 02/11/19 05:14 PT 14.1 Sec. (12.2-14.9) 02/10/19 11:31 INR 1.12 (0.87-1.13) 02/10/19 11:31 APTT 21.0 Sec. (24.2-36.6) L 02/10/19 11:31 13.0 Sec. (15.1-19.6) L 02/10/19 11:31 Sodium 137 mmol/L (137-145) 02/11/19 05:14 Potassium 4.0 mmol/L (3.6-5.0) 02/11/19 05:14 Chloride 102.4 mmol/L (98-107) 02/11/19 05:14 Carbon Dioxide 23 mmol/L (22-30) 02/11/19 05:14 16 mmol/L 02/11/19 05:14 BUN 13 mg/dL (7-17) 02/11/19 05:14 0.6 mg/dL (0.7-1.2) L 02/11/19 05:14 Estimated GFR > 60 ml/min 02/11/19 05:14 22 % 02/11/19 05:14 Glucose 225 mg/dL (65-100) H 02/11/19 05:14 POC Glucose 194 (70-105) H 02/11/19 11:52 7.8 % (4-6) H 02/10/19 21:19 Calcium 8.5 mg/dL (8.4-10.2) 02/11/19 05:14 0.40 mg/dL (0.1-1.2) 02/11/19 05:14 AST 17 units/L (5-40) 02/11/19 05:14 ALT 16 units/L (7-56) 02/11/19 05:14 66 units/L (35-129) 02/11/19 05:14 0.138 ng/mL (0.00-0.029) H* 02/11/19 05:14 6.6 g/dL (6.3-8.2) 02/11/19 05:14 3.1 g/dL (3.9-5) L 02/11/19 05:14 0.9 % 02/11/19 05:14 Triglycerides 134 mg/dL (2-149) 02/11/19 05:14 Cholesterol 101 mg/dL (50-199) 02/11/19 05:14 61 mg/dL (50-130) 02/11/19 05:14 26 mg/dL (40-59) L 02/11/19 05:14 3.88 % 02/11/19 05:14 Active Medications - Current Medications Current Medications: Generic Name Dose Route Start Last Admin Trade Name Freq PRN Reason Stop Dose Admin Acetaminophen 650 mg 02/10/19 20:03 Tylenol PO Q4H PRN Pain MILD(1-3)/Fever >100.5/MYERS Albuterol 2.5 mg 02/10/19 20:14 Proventil IH Q4HRT PRN Shortness Of Breath Aspirin 81 mg 02/10/19 21:00 02/11/19 12:44 Baby Aspirin PO 81 mg QDAY [facility] Administration Atorvastatin Calcium 40 mg 02/10/19 22:00 02/10/19 23:19 Lipitor PO 40 mg QHS [facility] Administration Dextrose 50 ml 02/11/19 09:30 D50w (25gm) Syringe IV PRN PRN Hypoglycemia Escitalopram Oxalate 10 mg 02/10/19 21:00 02/11/19 12:44 Lexapro PO 10 mg DAILY [facility] Administration Famotidine 20 mg 02/10/19 22:00 02/11/19 12:43 Pepcid PO 20 mg BID [facility] Administration Glipizide 10 mg 02/10/19 22:00 02/11/19 08:00 Glucotrol PO Not Given BIDDIAB [facility] Sodium Chloride 1,000 mls @ 75 mls/hr 02/10/19 21:00 02/10/19 23:19 Nacl 0.9% 1000 Ml IV 75 mls/hr DIRECT [facility] Administration Ibuprofen 600 mg 02/10/19 20:03 Ibuprofen PO Q6H PRN Pain, Mild (1-3) Insulin Human Lispro 0 unit 02/11/19 11:30 02/11/19 11:30 Humalog SUB-Q Not Given ACHS [facility] Protocol Lisinopril 5 mg 02/10/19 21:00 02/11/19 12:43 Zestril PO 5 mg DAILY [facility] Administration Metformin HCl 850 mg 02/10/19 22:00 02/11/19 08:06 Glucophage PO Not Given BIDDIAB [facility] Ondansetron HCl 4 mg 02/10/19 20:03 Zofran IV Q8H PRN Nausea And Vomiting Sodium Chloride 10 ml 02/10/19 22:00 02/11/19 12:44 Sodium Chloride Flush Syringe 10 Ml IV 10 ml BID [facility] Administration Sodium Chloride 10 ml 02/10/19 20:03 Sodium Chloride Flush Syringe 10 Ml IV PRN PRN LINE FLUSH
[2019-02-11] MEDS: PLAVIX PO SCH (16:44)
--- NOTE | 2019-02-11 17:43 | Magnetic Resonance Report ---
MRI BRAIN WITHOUT CONTRAST INDICATION / CLINICAL INFORMATION: stroke. TECHNIQUE: Multiplanar, multisequence MR images of the brain were obtained. COMPARISON: CT scan obtained yesterday FINDINGS: BRAIN / INTRACRANIAL CONTENTS: This is an abnormal MRI scan. Restrictive diffusion is seen in the rig ht cerebral hemisphere in the inferior right basal ganglia, right globus pallidus, right frontal lobe border zone. Right lateral view. These areas of infarctions are more than 6 hours old (increased FLA IR and T2 signal intensities) but less than 3 days old (low ADC values). I do not see free air/diffus ion mismatch. Isolated focus of subacute ischemia is seen in the left precentral gyrus. Focal area of increased FLAIR signal intensity is seen along the superior frontal sulcus. Susceptibil ity changes are seen. Platysma is no focal area of sulcal subarachnoid hemorrhage. Wedge-shaped area of increased FLAIR and T2 signal intensities are seen in the internal and external border zone in the parieto-occipital area. This appears to be chronic. Brainstem and cerebellar hemispheres are normal. No acute hemorrhage, mass effect, midline shift, or hydrocephalus. Scattered the deep hemispheric w heather matter lesions are seen in the left cerebral hemisphere. No significant white matter abnormality . CRANIOCERVICAL JUNCTION: No significant abnormality. VASCULAR FLOW-VOIDS: No significant abnormality. ORBITS: No significant abnormality of visualized orbits. SINUSES / MASTOIDS: No significant abnormality of visualized sinuses and mastoid air cells. ADDITIONAL FINDINGS: None. IMPRESSION: 1. Nonhemorrhagic subacute infarction in the right basal ganglia, right inferior parietal lobule Signer Name: Christina Kothari MD Signed: 02/11/2019 5:38 PM Workstation Name: [id number]
--- NOTE | 2019-02-11 17:51 | Event Note ---
Date: 02/11/[address] Escalante called me MRI report Nonhemorrhagic subacute infarction in the right basal ganglia and right inferior parietal lobule
--- NOTE | 2019-02-11 19:32 | Consultation ---
History of Present Illness Consult date: 02/11/19 Reason for Consult: Stroke Chief complaint: left sided weakness History of present illness: Patient is a 63 y/o woman w/ a h/o HTN, DM, CAD, HLD, asthma, arthritis. She presented yesterday with a 2 day h/o slurred speech, left sided weakness, difficulty walking, and visual changes. Patient had a coronary stent placed on Sunday, and was discharged Sunday. She reports that she was asymptomatic on Sunday. She went to [facility] on Sunday morning, and niece reports that she was sent home from the ER. She went home the same day after being discharged from [facility], and niece states that her symptoms persisted at that time. Patient was then brought to [facility] ER yesterday. She states that she has been taking ASA and Plavix at home, and had not taken Plavix for about 2 weeks, however began taking it once again 3 weeks ago. She also takes lipitor at home, and has been compliant with this. Past History Past Medical History: CAD, diabetes, hypertension, hyperlipidemia Past Surgical History: PTCA, Other (Vscular surgery) Social history: lives with family, smoking Family history: denies: CAD Medications and Allergies Allergies Allergy/AdvReac Type Severity Reaction Status Date / Time No Known Allergies Allergy Unverified 02/07/19 06:08 Home Medications Medication Instructions Recorded Confirmed Last Taken Type Albuterol Sulfate [Proventil Hfa] 6.7 gm IH PRN PRN 02/07/19 02/10/19 02/10/19 History AtorvaSTATin [Lipitor] 40 mg PO QHS 02/07/19 02/10/19 02/09/19 History Escitalopram [Lexapro] 10 mg PO DAILY 02/07/19 02/10/19 02/09/19 History Lisinopril [Zestril TAB] 5 mg PO DAILY 02/07/19 02/10/19 02/09/19 History glipiZIDE [Glucotrol] 10 mg PO QID 02/07/19 02/10/19 02/09/19 History metFORMIN [Glucophage] 850 mg PO BID 02/07/19 02/10/19 02/09/19 History Aspirin [Aspirin BABY CHEW TAB] 81 mg PO QDAY 02/10/19 02/10/19 02/09/19 History Active Meds: Active Medications Acetaminophen (Tylenol) 650 mg PO Q4H PRN PRN Reason: Pain MILD(1-3)/Fever >100.5/MYERS Albuterol (Proventil) 2.5 mg IH Q4HRT PRN PRN Reason: Shortness Of Breath Aspirin (Baby Aspirin) 81 mg PO QDAY [facility] Atorvastatin Calcium (Lipitor) 40 mg PO QHS [facility] Last Admin: 02/10/19 23:19 Dose: 40 mg Documented by: Clopidogrel Bisulfate (Plavix) 75 mg PO QDAY [facility] Last Admin: 02/11/19 16:44 Dose: 75 mg Documented by: Dextrose (D50w (25gm) Syringe) 50 ml IV PRN PRN PRN Reason: Hypoglycemia Escitalopram Oxalate (Lexapro) 10 mg PO DAILY [facility] Last Admin: 02/11/19 12:44 Dose: 10 mg Documented by: Famotidine (Pepcid) 20 mg PO BID [facility] Last Admin: 02/11/19 12:43 Dose: 20 mg Documented by: Glipizide (Glucotrol) 10 mg PO BIDDIAB [facility] Last Admin: 02/11/19 17:57 Dose: 10 mg Documented by: Insulin Human Lispro (Humalog) 0 unit SUB-Q ACHS [facility]; Protocol Last Admin: 02/11/19 16:44 Dose: Not Given Documented by: Lisinopril (Zestril) 5 mg PO DAILY [facility] Last Admin: 02/11/19 12:43 Dose: 5 mg Documented by: Metformin HCl (Glucophage) 850 mg PO BIDDIAB [facility] Last Admin: 02/11/19 17:58 Dose: Not Given Documented by: Ondansetron HCl (Zofran) 4 mg IV Q8H PRN PRN Reason: Nausea And Vomiting Sodium Chloride (Sodium Chloride Flush Syringe 10 Ml) 10 ml IV BID [facility] Last Admin: 02/11/19 12:44 Dose: 10 ml Documented by: Sodium Chloride (Sodium Chloride Flush Syringe 10 Ml) 10 ml IV PRN PRN PRN Reason: LINE FLUSH Review of Systems All systems: negative Neurological: change in speech, gait dysfunction, loss of vision Physical Examination - Vital Signs Vital Signs: Vital Signs Temp Pulse Resp BP Pulse Ox 98.5 F 83 20 112/39 98 02/10/19 10:52 02/10/19 10:52 02/10/19 10:52 02/10/19 10:52 02/10/19 10:52 - Constitutional General appearance: comfortable - EENT EENT: Present: ATNC, PERRL, mucous membranes moist, hearing intact - Respiratory Respiratory: Present: lungs clear, normal breath sounds - Cardiovascular Cardiovascular: Present: regular rate, normal S1, normal S2 Extremities: Present: no peripheral edema bilatateraly, no clubbing, cyanosis, no inflammation - Gastrointestinal Gastrointestinal: Present: normoactive bowel sounds, soft, non-tender - Integumentary Integumentary: Present: normal - Neurologic Cranial nerve examination: PERRL, EOMI, V1/V2/V3 grossly intact, face symmetric, tongue midline, intact shoulder shrug, other (left visual neglect) Speech examination: intact Motor examination - right side: 5/5: biceps, triceps, wrist flexion, wrist extension, gamer, hip flexors, knee extensors, dorsiflexion, toe extension (EHL), plantarflexion Motor examination - left side: 4/5: biceps, triceps, wrist flexion, wrist extension, gamer, 5/5: hip flexors, knee extensors, dorsiflexion, toe extension (EHL), plantarflexion Detailed sensory examination: intact, light touch, extinction (on left) Reflexes: 2+: ankle, bicep, knee, tricep Cerebellar examination: other (b/l intact to HTS and FTN) - Musculoskeletal Musculoskeletal: Present: no fluid collection, no pain - Psychiatric Psychiatric: Present: mood/affect appropriate - Level of Consciousness 1a. Level of Consciousness: alert/keenly responsive - LOC Questions 1b. LOC Questions: answers both correctly - LOC Command 1c. LOC Commands: performs tasks correctly - Best Gaze 2. Best Gaze: normal - Visual 3. Visual: no visual loss - Facial Palsy 4. Facial Palsy: normal symmetrical movement - Motor Arm 5a. Motor Arm Left: no drift 5b. Motor Arm Right: no drift - Motor Leg 6a. Motor Leg Left: no drift 6b. Motor Leg Right: no drift - Limb Ataxia 7. Limb Ataxia: absent - Sensory 8. Sensory: normal - Best Language 9. Best Language: no aphasia - Dysarthria 10. Dysarthria: normal - Extinction and Inattention 11. Extinction/Inattention: visual/tactile inattention - Scoring Total Score: 1 Stroke Severity: Minor Stroke Results - Laboratory Findings CBC and BMP: 02/11/19 05:14 02/11/19 05:14 Abnormal Lab Findings: Abnormal Labs 02/10/19 02/10/19 02/10/19 11:04 11:31 11:31 [place] % (Auto) 7.6 H APTT 21.0 L Thrombin Time Sodium Creatinine Glucose POC Glucose 377 H Hemoglobin A1c Troponin T Albumin HDL Cholesterol 02/10/19 02/10/19 02/10/19 11:31 11:31 21:19 [place] % (Auto) APTT Thrombin Time 13.0 L Sodium 135 L Creatinine Glucose 379 H POC Glucose Hemoglobin A1c 7.8 H Troponin T 0.154 H* D Albumin HDL Cholesterol 02/10/19 02/10/19 02/11/19 21:19 23:44 05:14 [place] % (Auto) 8.8 H APTT Thrombin Time Sodium Creatinine Glucose POC Glucose 190 H Hemoglobin A1c Troponin T 0.164 H* Albumin HDL Cholesterol 02/11/19 02/11/19 02/11/19 05:14 05:14 07:39 [place] % (Auto) APTT Thrombin Time Sodium Creatinine 0.6 L Glucose 225 H POC Glucose 209 H Hemoglobin A1c Troponin T 0.138 H* Albumin 3.1 L HDL Cholesterol 26 L 02/11/19 02/11/19 11:52 17:24 [place] % (Auto) APTT Thrombin Time Sodium Creatinine Glucose POC Glucose 194 H 253 H Hemoglobin A1c Troponin T Albumin HDL Cholesterol Assessment and Plan Patient is a 63 y/o woman w/ a h/o HTN, DM, CAD, HLD, asthma, arthritis, who p/w left sided weakness, slurred speech, and gait imbalance 2 days ago. According to the patient's clinical findings, she has had an acute ischemic stroke involving the Rt. MCA territory. Plan: 1. Stroke: - MRI revealed Rt. MCA territory embolic-appearing infarcts. - CTA head/neck revealed Rt. ICA 30-40% stenosis, Lt. ICA 70% stenosis, distal b/l ICA mild stenosis. - CUS revealed <50% stenosis AMANDEEP, 50-69% stenosis LICA. - Echo: EF 50%, bubble study negative, LA normal size - LDL 61. - Cont. patient on ASA and plavix. - Discussed with patient regarding smoking cessation. - Cont. statin with LDL goal<70. - Telemetry monitoring while in house - PT/OT/ST - Recommend for patient to have 30-day MCOT or ILR placement for cardiac monitoring, as infarct appears to be embolic in etiology, and Rt. ICA does not have significant stenosis. DVT Ppx: recommend lovenox 2.HTN: - Recommend target BP of normotension as it has been >48 hours since symptoms onset. Thank you for allowing me to participate in the care of this patient. - Will sign off, as stroke workup has been completed, and further plan in place. Please call with any questions. Johnathon Cheung MD Neurology
[2019-02-12] MEDS: HumaLOG SUB-Q SCH ×3 (07:59→16:35)
--- NOTE | 2019-02-12 08:39 | Consultation ---
History of Present Illness - Reason for Consult Consult date: 02/12/19 Carotid Stenosis - History of Present Illness HPI: 63yo female hospitalized after TIA x2 on Sunday with symptoms of facial numbness, difficulty speaking and difficulty walking. The patient states each episode lasted a few minutes and completely resolved. She presented to [facility] on Sunday but was discharged home after work-up in the ED. The patient recently underwent PCI with stent placement this past Sunday and was instructed to come to [facility]. The patient denies any further episodes since Sunday. The pat halina denies previous stoke but has smoke 1 ppd for over 40 years. Patient with a hx of bilateral lower extremity open revascularization. PE: NAD, A&Ox3 RRR non-labored respirations CN II-XII intact motor/sensory grossly intact Carotid duplex reviewed Neck CTA reviewed Brain MRI reviewed Plan: Patient with significant stenosis noted in the left carotid Patient with acute CVA Unlikely CVA related to carotid stenosis given distribution would avoid surgical intervention of asymptomatic lesion in the setting of acute CVA and recent PCI patient should continue with medical management and plan to follow-up in our clinic with repeat carotid duplex in 6 months Past History Past Medical History: CAD, diabetes, hypertension, hyperlipidemia Past Surgical History: PTCA, Other (Vscular surgery) Social history: lives with family, smoking Family history: denies: CAD Medications and Allergies Allergies Allergy/AdvReac Type Severity Reaction Status Date / Time No Known Allergies Allergy Unverified 02/07/19 06:08 Home Medications Medication Instructions Recorded Confirmed Last Taken Type Albuterol Sulfate [Proventil Hfa] 6.7 gm IH PRN PRN 02/07/19 02/10/19 02/10/19 History AtorvaSTATin [Lipitor] 40 mg PO QHS 02/07/19 02/10/19 02/09/19 History Escitalopram [Lexapro] 10 mg PO DAILY 02/07/19 02/10/19 02/09/19 History Lisinopril [Zestril TAB] 5 mg PO DAILY 02/07/19 02/10/19 02/09/19 History glipiZIDE [Glucotrol] 10 mg PO QID 02/07/19 02/10/19 02/09/19 History metFORMIN [Glucophage] 850 mg PO BID 02/07/19 02/10/19 02/09/19 History Aspirin [Aspirin BABY CHEW TAB] 81 mg PO QDAY 02/10/19 02/10/19 02/09/19 History Active Meds: Active Medications Acetaminophen (Tylenol) 650 mg PO Q4H PRN PRN Reason: Pain MILD(1-3)/Fever >100.5/MYERS Albuterol (Proventil) 2.5 mg IH Q4HRT PRN PRN Reason: Shortness Of Breath Aspirin (Baby Aspirin) 81 mg PO QDAY [facility] Atorvastatin Calcium (Lipitor) 40 mg PO QHS [facility] Last Admin: 02/11/19 22:43 Dose: 40 mg Documented by: Clopidogrel Bisulfate (Plavix) 75 mg PO QDAY [facility] Last Admin: 02/11/19 16:44 Dose: 75 mg Documented by: Dextrose (D50w (25gm) Syringe) 50 ml IV PRN PRN PRN Reason: Hypoglycemia Escitalopram Oxalate (Lexapro) 10 mg PO DAILY [facility] Last Admin: 02/11/19 12:44 Dose: 10 mg Documented by: Famotidine (Pepcid) 20 mg PO BID [facility] Last Admin: 02/11/19 22:43 Dose: 20 mg Documented by: Glipizide (Glucotrol) 10 mg PO BIDDIAB [facility] Last Admin: 02/11/19 17:57 Dose: 10 mg Documented by: Insulin Human Lispro (Humalog) 0 unit SUB-Q ACHS [facility]; Protocol Last Admin: 02/11/19 22:43 Dose: Not Given Documented by: Lisinopril (Zestril) 5 mg PO DAILY [facility] Last Admin: 02/11/19 12:43 Dose: 5 mg Documented by: Metformin HCl (Glucophage) 850 mg PO BIDDIAB [facility] Last Admin: 02/11/19 17:58 Dose: Not Given Documented by: Ondansetron HCl (Zofran) 4 mg IV Q8H PRN PRN Reason: Nausea And Vomiting Sodium Chloride (Sodium Chloride Flush Syringe 10 Ml) 10 ml IV BID [facility] Last Admin: 02/11/19 22:43 Dose: 10 ml Documented by: Sodium Chloride (Sodium Chloride Flush Syringe 10 Ml) 10 ml IV PRN PRN PRN Reason: LINE FLUSH Exam - Constitutional Vitals: Temp Pulse Resp BP Pulse Ox 97.4 F L 64 20 122/35 99 02/12/19 08:00 02/12/19 08:00 02/12/19 08:00 02/12/19 08:00 02/12/19 08:00 Results - Labs CBC & Chem 7: 02/11/19 05:14 02/11/19 05:14 Labs: Abnormal lab results 02/11/19 02/11/19 02/11/19 Range/Units 11:52 17:24 21:27 POC Glucose 194 H 253 H 264 H (70-105) 02/12/19 Range/Units 07:38 POC Glucose 199 H (70-105)
[2019-02-12] MEDS: GLUCOPHAGE PO SCH ×2 (08:59→16:35)
[2019-02-12] MEDS: ZESTRIL PO SCH (09:00)
[2019-02-12] MEDS: PEPCID PO SCH (09:00)
[2019-02-12] MEDS: GLUCOTROL PO SCH ×2 (09:00→16:35)
[2019-02-12] MEDS: PLAVIX PO SCH (09:00)
[2019-02-12] MEDS: SODIUM CHLORIDE FLUSH SYRINGE 10 ML IV SCH (09:00)
[2019-02-12] MEDS: LEXAPRO PO SCH (09:01)
[2019-02-12] MEDS ORDERED: BABY ASPIRIN PO SCH (10:00)
--- NOTE | 2019-02-12 10:49 | Progress Note ---
Assessment and Plan tte reviewed. Cardiac status appears stable. Elevated Tn is likely residual from recent PCI. vascular recs noted. Nothing further to add from cardiac perspective at this time. Pt may d/c home from cardiology standpoint on home cardiac regimen. Recommend follow up in our office with Dr. Zamorano within 1-2 weeks of hospital discharge ([phone]). The patient has been seen in conjunction with Dr. Dolan who agrees with the assessment and plan of care. - Patient Problems (1) Acute CVA (cerebrovascular accident) Current Visit: Yes Status: Acute (2) Stenosis of left internal carotid artery Current Visit: Yes Status: Acute (3) Stented coronary artery Current Visit: Yes Status: Chronic (4) CAD (coronary artery disease) Current Visit: Yes Status: Chronic Qualifiers: Coronary Disease-Associated Artery/Lesion type: [place] artery (5) Elevated troponin Current Visit: Yes Status: Acute (6) Hypertension Current Visit: Yes Status: Chronic Qualifiers: Hypertension type: essential hypertension Qualified Code(s): I10 - [place] t[place] (primary) hypertension (7) Diabetes mellitus Current Visit: Yes Status: Chronic Qualifiers: Diabetes mellitus type: type 2 Subjective Date of service: 02/12/19 Principal diagnosis: acute CVA; carotid stenosis Interval history: pt resting in bed, no current cardiac complaints. in SR HR 60s on tele with some SB overnight, HR low of 49bpm. Objective Last Vital Signs Temp 97.4 F L 02/12/19 08:00 Pulse 64 02/12/19 08:00 Resp 20 02/12/19 08:00 BP 122/35 02/12/19 08:00 Pulse Ox 99 02/12/19 08:00 - Physical Examination General: No Apparent Distress HEENT: Positive: EOMI, Normocephaly, Mucus Membranes Moist Neck: Positive: neck supple, trachea midline Cardiac: Positive: Reg Rate and Rhythm, S1/S2 Lungs: Positive: clear to auscultation Neuro: Positive: Grossly Intact Abdomen: Positive: Soft, Active Bowel Sounds. Negative: Tender Skin: Positive: Clear. Negative: Rash Musculoskeletal: Normal Range of Motion Extremities: Present: normal. Absent: edema
--- NOTE | 2019-02-12 11:34 | Magnetic Resonance Report ---
MRA head without contrast. INDICATION: Recent stroke. TECHNIQUE: 3-D [id number] MRA head without contrast COMPARISON: CTA head on 02/10/2019. FINDINGS: There is mild nonflow limiting stenosis in the bilateral supraclinoid internal carotid arteries of ab out 20-30% by criteria similar to NASCET. There is no flow limiting stenosis or large vessel occlusio n in the intracranial arteries. There are no significant anatomical variations. No aneurysms are iden tified. IMPRESSION: 1. No flow limiting stenosis or large vessel occlusion in the intracranial arteries. Signer Name: Mat Estes MD Signed: 02/12/2019 11:30 AM Workstation Name: [id number]
[2019-02-12 15:56] VITALS: BP 124/29
--- NOTE | 2019-02-12 17:26 | Discharge Summary ---
Providers - Providers Date of Admission: 02/10/19 18:08 Date of discharge: 02/12/19 Attending physician: CHIN LEAL 02/10/19 13:44 Speech Therapy Evaluation and Treat [CONS] Routine Reason For Exam: failed swallow screen 02/10/19 20:03 Consult to Physician [CONS] Routine Comment: Consulting Provider: BRAD TAVERA Physician Instructions: Reason For Exam: CVA 02/10/19 20:09 Occupational Therapy Evaluate and Treat [CONS] Routine Comment: Reason For Exam: Neuro deficits Physical Therapy Evaluation and Treat [CONS] Routine Comment: Reason For Exam: Neuro deficits 02/10/19 23:29 Consult to Physician [CONS] Routine Comment: Consulting Provider: GALLITO SIERRA Physician Instructions: Reason For Exam: elevated troponin 02/11/19 14:37 Consult to Physician [CONS] Routine Comment: Consulting Provider: CHON KING Physician Instructions: Reason For Exam: Left ICA stenosis, TIA/CVA Hospitalization Condition: Stable Hospital course: Patient is a 63 yo woman with a history of type 2 DM, hypertension, dyslipidemia, depression and CAD s/p recent PCI with JOSE On 02/07/19, following an abnormal stress test, she underwent coronary intervention. Coronary angiography revealed a 90% stenosis of the circumflex coronary artery for which she received a drug eluting stent. There is also a YEAST PUMPER of a small mid RCA which is being managed medically. LV systolic function was normal on LVG. Three days prior to arrival, she developed left upper extremity weakness with left-sided neglect and left visual field symptoms and slurred speech. * Carotid Ultrasound bilateral doppler Impression: Right ICA less than 50% diameter stenosis, Left ICA 50-69% diameter stenosis * CTA neck IMPRESSION: There is calcified plaque involving left carotid bifurcation with approximately 70% stenosis by NASCET criteria. 2. This also calcified plaque involving right carotid bifurcation with 30-40% stenosis at. There is marked narrowing of the origin of the right external carotid artery. 3. There is mild narrowing of the origins of the vertebral arteries. * CT head without contrast IMPRESSION: 1. No definite acute findings. 2. Small chronic-appearing cortical infarct in the left occipital lobe and small chronic appearing lacune in the right caudate head. * CTA head IMPRESSION: There is atherosclerotic calcification involving the distal internal carotid arteries with mild to moderate segmental narrowing as described. * pCXR IMPRESSION: No acute abnormality of the chest. * TTE conclusions: mild MR, mild TR, lv size is normal, global LVSF is at the lower limits of normal, inferior wall appears hypokinetic, EF 50%, RVSF normal * MRA head without contrast IMPRESSION: 1. No flow limiting stenosis or large vessel occlusion in the intracranial arteries. * MRI head without contrast IMPRESSION: 1. Nonhemorrhagic subacute infarction in the right basal ganglia, right inferior parietal lobule Discharge Diagnoses: Acute right ischemic stroke with residual Left sided visual field neglect and dysarthria: treated with antiplt and statin Recent CAD s/p JOSE: continue plavix Tobacco dependency: admissions counselor on stopping Type 2 DM: accu checks and ssi, ada Dyslipidemia: statin PD: on Sinemet Asthma wo excerb: albuterol inhaler Left ICA stenosis: consulted Vascular, input noted; "Unlikely CVA related to carotid stenosis given distribution, would avoid surgical intervention of asymptomatic lesion in the setting of acute CVA and recent PCI, patient should continue with medical management and plan to follow-up in our clinic with repeat carotid duplex in 6 months" per Dr. García Disposition: [id number] HOME UNDER HOME [facility] Time spent for discharge: 36 minutes Core Measure Documentation - Palliative Care Palliative Care/ Comfort Measures: Not Applicable - Core Measures Any of the following diagnoses?: stroke - VTE Discharge Requirements Deep Vein Thrombosis/Pulmonary Embolism Present on Admission: No Has pt received <5 days of overlap therapy or INR<2.0: No Anticoagulant overlap therapy prescribed at discharge: No Contraindication No Overlap Therapy order at DC: Not Indicated - Stroke Discharge Requirements Statin for LDL = or >70 mg/dl on DC: Yes Anticoag for atrial fib/atrial flutter: Not Applicable Reason for no anticoag for AF/F on DC: Not Indicated Antithrombotic for ischemic stroke: Yes Exam - Physical Exam Narrative exam: Gen: WDWN, NAD, Awake, Alert, Orientated HEENT: NCAT, EOMI, PERRL, OP Clear Neck: supple, no adenopathy, no thyromegaly, no JVD CVS/Heart: RRR, normal S1S2, pulses present bilaterally Chest/Lungs: CTA B, Symmetrical chest expansion, good air entry bilaterally GI/Abdomen: soft, NTND, good bowel sounds, no guarding or rebound /Bladder: no suprapubic tenderness, no CVA or paraspinal tenderness Extermity/Skin: no c/c/e, no obvious rash MSK: FROM x 4 Neuro: CN 2-12 grossly intact, no new focal deficits Psych: calm - Constitutional Vitals: Temp Pulse Resp BP Pulse Ox 98.3 F 72 18 124/29 99 02/12/19 15:50 02/12/19 15:50 02/12/19 15:50 02/12/19 15:50 02/12/19 15:50 Plan Activity: no driving until cleared by PCP, other (no strenous activity unless cleared by PCP) Diet: low salt, diabetic Special Instructions: record daily BP diary, record blood sugar diary (three times a day and at bedtime, keep log book and take to PCP) Additional Instructions: --NO DRIVING unless cleared by Neurologist. --see Dr. Carolina Ngo to set up 30 day Holter monitor. --see Dr. Chon King, need 6 month Ultrasound of Carotids imaging study Follow up with: NGUYEN GARAY [Other] - 7 Days CHON KING MD [Staff Physician] - 6 Weeks ELISA QIU MD [Staff Physician] - 7 Days CAROLINA NGO MD [Staff Physician] - 10 Days Prescriptions: AtorvaSTATin [Lipitor] 80 mg PO QHS #30 tab Aspirin [Aspirin BABY CHEW TAB] 81 mg PO QDAY #30 tab.chew
== END 2019-02-12 18:18 | disposition home health service (06) | DRG 65 ==
LOC: ED 10:40 → 4A 18:08
PROVIDERS: ADMIT Internal Medicine; ATTEND Internal Medicine
DX: I63.9 Cerebral infarction, unspecified (principal); G81.94 Hemiplegia, unspecified affecting left nondominant side; R41.4 Neurologic neglect syndrome; J45.909 Unspecified asthma, uncomplicated; G20 Parkinson's disease; I10 Essential (primary) hypertension; I65.22 Occlusion and stenosis of left carotid artery; I25.10 Atherosclerotic heart disease of native coronary artery without angina pectoris; R29.702 NIHSS score 2; F17.200 Nicotine dependence, unspecified, uncomplicated; Z79.84 Long term (current) use of oral hypoglycemic drugs; E11.9 Type 2 diabetes mellitus without complications; R47.81 Slurred speech; R47.1 Dysarthria and anarthria; Z95.5 Presence of coronary angioplasty implant and graft
CPT/HCPCS: 36415; 70450; 70496; 70498; 70544; 70551; 80048; 80053; 80061; 82962; 83036; 84484; 85025; 85610; 85670; 85730; 93005; 93010; 93306; 93880; 99406; G0378; A9270-GY; J1815; J7030; Q9967